=== PATIENT | male | born 1965 | race Caucasian/White ===

== ENCOUNTER → 2021-07-07 09:37 | Outpatient (CLI) | payer OTHER, SELFPAY ==
[2021-07-07 10:42] LABS: COVID19 -Nasal RAPID Negative (Negative)
== END ==
PROVIDERS: PCP Physician Assistant Medical; Visit Provider Specialist
DX: Z20.822 Contact with and (suspected) exposure to COVID-19 (principal)
CPT/HCPCS: 87635; C9803

== ENCOUNTER 2021-07-08 07:57 | Day surgery (SDC) | payer OTHER, SELFPAY ==
[2021-07-08 08:21] VITALS: BP 121/89; PULSE 81; RESP 16; TEMP 36.9; O2SAT 98; BMI 30.4
[2021-07-08] MEDS: LACTATED RINGERS 1,000 ML 100 ML IV (08:34)
--- NOTE | 2021-07-08 10:10 | P.HP_ITS ---
History of Present Illness History of Present Illness Chief complaint: [facility] Narrative: Patient is a gentleman here for a screening colonoscopy. Last exam was 5 years ago. He has a personal history of polyps. No history of cancer in the family. Patient History Surgical History H/O vasectomy History of cholecystectomy Family & Social History Social History: household members spouse Tobacco & Substance use: Smoking Status Never smoker alcohol intake current alcohol intake frequency holiday/special occasion Substance Use Type does not use Meds Home Medications and Allergies Home Medications Medication Instructions Recorded Confirmed Type No Known Home Medications 07/08/21 07/08/21 History Allergies Allergy/AdvReac Type Severity Reaction Status Date / Time Penicillins Allergy Intermediate Hives Verified 07/08/21 08:19 Review of Systems Review of Systems Narrative: No cardiopulmonary GI or symptoms. No seizures or blackouts. Exam Vital Signs (past 8 hours): - 07/08/21 08:21 Temperature 98.4 F Pulse Rate 81 Respiratory Rate 16 Blood Pressure 121/89 Pulse Oximetry 98 Oxygen Delivery Method Room Air Narrative Exam Narrative: Pleasant cooperative patient no apparent distress. Lungs are clear to auscultation. No rales or rhonchi. Heart regular rate and rhythm no murmur gallop. Abdomen is soft nontender without mass. No obvious hernias. Patient is alert and oriented x3. Assessment & Plan Assessment & Plan narrative: The patient for a screening colonoscopy. I have discussed the procedure with them. Risks of bleeding, perforation which would necessitate major operation, failure to find remove all lesions, the potential tattoo were all discussed. All questions were answered. They wished to proceed.
--- NOTE | 2021-07-08 10:12 | PM.PREOP ---
Pre-operative Note COVID-19 COVID-19 status: Negative Result date/Date tested (Pos, Neg/Pending): 07/07/21 Interval Note History & Physical reviewed/Exam performed by Physician: Yes Changes to H&P: No ASA Class (for procedural sedation): I
[2021-07-08] MEDS: fentaNYL 250 MCG/5 ML INJ IV (10:18)
[2021-07-08] MEDS: MIDAZOLAM 5 MG/5 ML VIAL IV (10:18)
--- NOTE | 2021-07-08 10:36 | PM.OP.ENDO ---
Operative Date/Time/Diagnoses Date of procedure: 07/08/21 Time of procedure: 10:36 Pre-op diagnosis: Screening exam. Last exam 5 years ago. Personal history of polyps. Post-op diagnosis: same Procedure & Clinicians Study performed: Colonoscopy Same procedure as scheduled: Yes Indications: Screening Surgeon: Max Butler Procedure Notes SCOAP/Timeout: Performed Procedure in detail: The patient was placed in the left lateral decubitus position and underwent IV sedation directed by the surgeon consisting of fentanyl and Versed. Digital exam was unremarkable. Prostate was was felt to be normal size without mass.. The scope was inserted and advanced through the rectum into the sigmoid, descending, transverse, and ascending colon. No lesions were seen.. The cecum was reached identified by the ileocecal valve and the appendiceal opening. The ileocecal valve was successfully cannulated. The terminal ileum was normal in appearance. The scope was gradually brought out. No Polyps were found. The scope ultimately was retroflexed in the rectum. The appearance was remarkable for hemorrhoidal disease which was mostly right near the anal verge.. The scope was removed and the patient tolerated the procedure well. Prep was excellent. Scope withdrawal time: 7-1/2 minutes Sedation minutes: 19 Findings: internal hemorrhoids Specimen(s): none sent Complications: none Post-procedure Recommendations: Colonscopy in 5 years Follow up: as needed Disposition: PACU
[2021-07-08 10:40] VITALS: BP 125/76; PULSE 69; RESP 15; TEMP 37.5; O2SAT 98
[2021-07-08 10:45] VITALS: BP 114/80; PULSE 70; RESP 17; O2SAT 94
[2021-07-08 10:50] VITALS: BP 107/72; PULSE 70; RESP 19; O2SAT 94
[2021-07-08 10:55] VITALS: BP 110/71; PULSE 72; RESP 18; TEMP 37.2; O2SAT 94
[2021-07-08 11:08] VITALS: BP 118/72; PULSE 78; RESP 18; TEMP 36.7; O2SAT 97
--- NOTE | 2021-07-08 14:19 | SUR.PHASEI ---
Late entry: Pt left when ready, left in stable condition.
== END 2021-07-08 11:30 | disposition home or self-care (01) ==
PROVIDERS: PCP Physician Assistant Medical; Referring Provider Specialist; Visit Provider Specialist
PROC: 0DJD8ZZ Inspection of Lower Intestinal Tract, Via Natural or Artificial Opening Endoscopic (ICD-10-PCS; CPT 45378; principal; 2021-07-08 09:15)
DX: Z12.11 Encounter for screening for malignant neoplasm of colon (principal); Z86.010 Personal history of colon polyps; K64.8 Other hemorrhoids
CPT/HCPCS: 45378; 99152; J2250; J3010

== ENCOUNTER → 2022-10-04 09:59 | Outpatient (CLI) | payer OTHER, SELFPAY ==
[2022-10-04 10:28] LABS: Hematocrit 45.1 % (41-53); Hemoglobin 15.5 g/dL (13.5-17.5); Mean Corpuscular HGB Conc 34.5 % (30-36); Mean Corpuscular Hemoglobin 29.8 PG (26-34); Mean Corpuscular Volume 86.5 fL (80-100); Platelet Count 251 X10^3/uL (150-400); Red Blood Cell Count 5.21 X10^6/uL (4.5-5.9); Red Cell Distribution Width 13.8 % (11.6-14.8); White Blood Cell Count 6.2 X10^3/uL (4.5-11.0)
[2022-10-04 10:56] LABS: Alanine Aminotransferase 40 IU/L (<50); Albumin 4.3 g/dL (3.5-5.0); Albumin Globulin Ratio 1.2 (1.0-2.8); Alkaline Phosphatase 82 U/L (38-126); Aspartate Aminotransferase 27 IU/L (17-59); BUN Creatinine Ratio 18.7 (6-22); Bilirubin Total 1.3 mg/dL (0.2-1.3); Blood Urea Nitrogen 17 mg/dL (9-20); Calcium 9.3 mg/dL (8.4-10.2); Carbon Dioxide 30 mmol/L (22-32); Chloride 99 mmol/L (98-107); Cholesterol 204 mg/dL (140-199); Estimated Glomerular Filt Rate > 60 mL/min (>60); Globulin 3.5 g/dL (1.7-4.1); Glucose 111 mg/dL (70-100); HDL Cholesterol 47 mg/dL (40-60); HEMOLYSIS < 15 (0-50); LDL Cholesterol Calculated 128 mg/dL (<100); Potassium 3.8 mmol/L (3.4-5.1); Sodium 138 mmol/L (137-145); Total Protein 7.8 g/dL (6.3-8.2); Triglycerides 143 mg/dL (35-150)
[2022-10-04 11:25] LABS: Prostate Specific Antigen Scrn 1.05 ng/mL (0.1-4.0)
[2022-10-04 11:30] LABS: Creatinine Urine Random 197.1 mg/dL
[2022-10-04 11:34] LABS: Microalbumi Creatinin Ratio Ur 24.8 ug/mg CR (<30); Microalbumin Urine Random 4.9 mg/dL (0-1.6)
[2022-10-04 13:50] LABS: Hemoglobin A1C% w Est Avg Glu 5.8 % (4.0-6.0)
== END ==
PROVIDERS: PCP Family Medicine; Referring Provider Family Medicine; Visit Provider Family Medicine
DX: I10 Essential (primary) hypertension (principal); I27.20 Pulmonary hypertension, unspecified; Z12.5 Encounter for screening for malignant neoplasm of prostate; Z13.220 Encounter for screening for lipoid disorders; R73.01 Impaired fasting glucose
CPT/HCPCS: 36415; 80053; 80061; 82043; 82570; 83036; 85027; G0103

== ENCOUNTER → 2023-03-01 11:16 | Outpatient (CLI) | payer OTHER, SELFPAY | PROVIDERS: PCP Family Medicine; Visit Provider Nurse Practitioner Family | DX: J02.9 Acute pharyngitis, unspecified (principal) | CPT/HCPCS: 87070 ==

== ENCOUNTER → 2023-07-27 15:59 | Outpatient (CLI) | payer OTHER, SELFPAY ==
[2023-07-27 16:27] LABS: Add Manual Diff / Slide Review NO; Basophils Absolute Auto 0 /uL (0-100); Basophils Percent Auto 0.7 % (0-2); Eosinophils Absolute Auto 200 /uL (0-450); Eosinophils Percent Auto 3.2 % (2-4); Hematocrit 44.6 % (41-53); Hemoglobin 15.3 g/dL (13.5-17.5); Lymphocytes Absolute Auto 1600 /uL (1100-4500); Lymphocytes Percent Auto 22.7 % (25-40); Mean Corpuscular HGB Conc 34.3 % (30-36); Mean Corpuscular Hemoglobin 30.1 PG (26-34); Mean Corpuscular Volume 87.8 fL (80-100); Monocytes Absolute Auto 600 /uL (0-900); Monocytes Percent Auto 8.7 % (3-14); Neutrophils Absolute Auto 4400 /uL (1500-7000); Neutrophils Percent Auto 64.7 % (50-75); Platelet Count 267 X10^3/uL (150-400); Red Blood Cell Count 5.09 X10^6/uL (4.5-5.9); Red Cell Distribution Width 13.9 % (11.6-14.8); White Blood Cell Count 6.8 X10^3/uL (4.5-11.0)
[2023-07-27 16:32] LABS: Ammonia (NH3) < 9 umol/L (9-30)
[2023-07-27 16:37] LABS: Alanine Aminotransferase 45 IU/L (<50); Albumin 4.6 g/dL (3.5-5.0); Albumin Globulin Ratio 1.2 (1.0-2.8); Alkaline Phosphatase 82 U/L (38-126); Aspartate Aminotransferase 29 IU/L (17-59); BUN Creatinine Ratio 16.1 (6-22); Bilirubin Direct 0.2 mg/dL (0.0-0.4); Bilirubin Total 1.3 mg/dL (0.2-1.3); Blood Urea Nitrogen 15 mg/dL (9-20); Calcium 9.7 mg/dL (8.4-10.2); Carbon Dioxide 29 mmol/L (22-32); Chloride 102 mmol/L (98-107); Estimated Glomerular Filt Rate > 60 mL/min (>60); Gamma Glutamyl Transpeptidase 33 U/L (15-73); Globulin 3.8 g/dL (1.7-4.1); Glucose 106 mg/dL (80-110); HEMOLYSIS < 15 (0-50); Potassium 4.1 mmol/L (3.4-5.1); Sodium 141 mmol/L (137-145); Total Protein 8.4 g/dL (6.3-8.2)
[2023-07-27 17:09] LABS: Thyroid Stimulating Hormone 1.16 uIU/mL (0.47-4.68)
[2023-07-27 17:59] LABS: Ferritin 246 ng/mL (18-464)
== END ==
PROVIDERS: PCP Family Medicine; Referring Provider Family Medicine; Visit Provider Family Medicine
DX: E78.5 Hyperlipidemia, unspecified (principal); R73.01 Impaired fasting glucose; I10 Essential (primary) hypertension; R10.9 Unspecified abdominal pain; K76.6 Portal hypertension; K74.60 Unspecified cirrhosis of liver; K76.9 Liver disease, unspecified; D64.9 Anemia, unspecified
CPT/HCPCS: 36415; 80053; 82140; 82248; 82728; 82977; 84443; 85025

== ENCOUNTER → 2023-08-15 08:37 | Outpatient (CLI) | payer OTHER, SELFPAY ==
--- NOTE | 2023-08-15 08:37 | DI.US.S_ITS ---
PROCEDURE: US ABDOMEN LIMITED INDICATIONS: HISTORY HEP C, PORTAL HTN TECHNIQUE: Real-time focused scanning was performed of the abdomen, with image documentation. COMPARISON: [facility], US, ABDOMEN COMPLETE, 02/17/2013, 16:13. FINDINGS: Visualized pancreas is unremarkable sonographically. Prior cholecystectomy. The extrahepatic bile duct measures 9 mm. No intrahepatic biliary ductal dilation identified. Liver is echogenic. No suspicious focal liver lesion identified sonographically. IMPRESSION: 1. The liver is echogenic, a nonspecific finding commonly seen in the setting of steatosis. 2. No suspicious focal liver lesion identified sonographically, however the abnormal background echotexture of the liver limits sensitivity for detection of focal lesions. 3. Prominent caliber of the extrahepatic bile duct likely related to post-cholecystectomy state, however correlation with the patient's symptoms and laboratory markers for biliary obstruction may be helpful. Dictated by: Garrick Sainz M.D. on 08/15/2023 at 9:41 Approved by: Garrick Sainz M.D. on 08/15/2023 at 10:00
== END ==
PROVIDERS: PCP Family Medicine; Referring Provider Family Medicine; Visit Provider Family Medicine
DX: R10.9 Unspecified abdominal pain (principal); Z86.19 Personal history of other infectious and parasitic diseases; K76.6 Portal hypertension
CPT/HCPCS: 76705

== ENCOUNTER → 2023-09-13 08:06 | Outpatient (CLI) | payer OTHER, SELFPAY ==
--- NOTE | 2023-09-13 | DI.ECHO.S_ITS ---
[facility] +---------+ : : [address] : : : : [id number] : : : : Phone: [phone] Echocardiogram Report + + :Name: DIA ONEIL V Study Date: 09/13/2023 Height: 70 in : :[facility] ReadingLocation: Weight: 215 lb : : Gender: Male BSA: 2.2 m2 : :: 1965 Age: 58 yrs BP: 136/93 mmHg: :Reason For Study: PULMONARY HYPERTENSION : :Ordering Physician: Wellington MONTGOMERYformed By: Bhavna Amaya : :Referring: JOSE MARTIN MONTGOMERY : + + Interpretation Summary 1) Normal left ventricular thickness, size, wall motion, and systolic function (EF 60-65%). 2) Normal right ventricular size and function. 3) No significant valvular abnormalities. 4) No prior Echo available for comparison. Procedure: A two-dimensional transthoracic echocardiogram with color flow and Doppler was performed. The study quality was technically adequate. There is no prior echocardiogram noted for this patient. The patient was in sinus rhythm with heart rates between 58-65 bpm during the exam. Left Ventricle: The left ventricle is normal in size and wall thickness. The ejection fraction is estimated to be 60-65%. Left ventricular systolic function appears normal without focal wall motion abnormalities. Diastolic parameters suggest probable normal left ventricular diastolic function and normal filling pressures. Right Ventricle: The right ventricle is normal in size and function. Atria: The left atrial size is normal. Right atrial size is normal. There is no Doppler evidence for an interatrial shunt. Mitral Valve: The mitral valve is normal in structure and function. There is no mitral regurgitation noted. Aortic Valve: The aortic valve is trileaflet. The aortic valve opens well. There is no aortic valve stenosis. There is trace aortic regurgitation. Tricuspid Valve: The tricuspid valve is normal in structure and function. There is trace tricuspid regurgitation. Pulmonary artery pressures cannot be estimated because of the lack of a measurable TR jet velocity. Pulmonic Valve: The pulmonic valve leaflets are thin and pliable; valve motion is normal. There is no pulmonic valvular regurgitation. Great Vessels: The aortic root is normal size. The dimensions of the ascending aorta are normal. The IVC is of normal diameter and collapses greater than 50% with a sniff. This suggests a low right atrial pressure of 3 mm Hg. Pericardium/ Pleura There is no pericardial effusion. There is no pleural effusion. MMode/2D Measurements & Calculations LVIDd: 5.0 cm LVOT diam: 2.3 cm LVIDs: 3.0 cm Ao root diam: 3.5 cm FS: 38.6 % asc Aorta Diam: 3.0 cm IVSd: 0.94 cm Ao Arch Diam (Prox Trans): 2.9 cm LVPWd: 0.92 cm LV farmer. diameter/BSA (cm/m^2): 2.3 LV sys. diameter/BSA (cm/m^2): 1.4 LA A2 area: 14.1 cm2 RA long axis: 4.5 cm LA A4 area: 13.5 cm2 RA area: 10.9 cm2 LA length (vol): 4.8 cm RA vol: 22.6 ml LA vol: 33.5 ml RA : 10.5 ml/m2 LA vol index: 15.6 ml/m2 IVC diam: 1.8 cm RVD1 (basal): 3.6 cm RVD2 (mid): 3.9 cm TAPSE: 2.0 cm Doppler Measurements & Calculations Ao V2 max: 125.3 cm/sec LVOT Max Jose: 92.9 cm/sec Ao V2 mean: 88.0 cm/sec LV V1 max P.5 mmHg Ao max P.3 mmHg LV V1 VTI: 19.8 cm Ao mean P.5 mmHg MESHA(I,D): 3.0 cm2 Ao V2 VTI: 27.8 cm MESHA(V,D): 3.1 cm2 sev ratio: 0.71 MESHA indexed to BSA (cm^2/m^2): 1.4 MV E max jose: 82.4 cm/sec PA V2 max: 116.8 cm/sec MV A max jose: 47.9 cm/sec PA V2 mean: 79.8 cm/sec MV E/A: 1.7 PA mean P.9 mmHg Med Peak E' Jose: 5.7 cm/sec PA pr(Accel): 15.6 mmHg E/E' med: 14.4 Lat Peak E' Jose: 11.2 cm/sec E/E' lat: 7.3 E/e' average: 10.9 MV dec time: 0.18 sec SV(LVOT): 82.4 ml Reading Physician:11:03 AM
== END ==
PROVIDERS: PCP Family Medicine; Referring Provider Family Medicine; Visit Provider Family Medicine
DX: I27.20 Pulmonary hypertension, unspecified (principal)
CPT/HCPCS: 93306

== ENCOUNTER → 2024-02-18 09:50 | Outpatient (CLI) | payer OTHER, SELFPAY ==
--- NOTE | 2024-02-18 09:52 | DI.US.S_ITS ---
PROCEDURE: US ABDOMEN LIMITED INDICATIONS: 6 MONTH FOLLOW UP RUQ TECHNIQUE: Real-time focused scanning was performed of the abdomen, with image documentation. COMPARISON: , US, ABDOMEN COMPLETE, 02/17/2013, 16:13. , US, US ABDOMEN LIMITED, 08/15/2023, 9:01. FINDINGS: This study is limited by overlying bowel gas. The liver demonstrates normal size. The liver demonstrates generalized moderately increased echogenicity. This decreases ultrasound sensitivity for detection of hepatic masses. The main portal vein demonstrates normal size and demonstrates normal appearing, hepatopetal flow. Status post cholecystectomy. There is no biliary dilatation, the common bile duct measures 6 mm. The pancreas is not seen, secondary to overlying bowel gas. IMPRESSION: Increased liver echogenicity seen, which is consistent with fatty infiltration or cirrhosis. Status post cholecystectomy, without biliary dilatation. Dictated by: Juancarlos Galvez M.D. on 02/18/2024 at 11:51 Approved by: Juancarlos Galvez M.D. on 02/18/2024 at 11:52
== END ==
LOC: US 09:51
PROVIDERS: PCP Family Medicine; Referring Provider Family Medicine; Visit Provider Family Medicine
DX: K76.6 Portal hypertension (principal); K74.60 Unspecified cirrhosis of liver; K76.9 Liver disease, unspecified; E78.5 Hyperlipidemia, unspecified; Z90.49 Acquired absence of other specified parts of digestive tract
CPT/HCPCS: 76705

== ENCOUNTER → 2024-09-08 08:14 | Outpatient (CLI) | payer OTHER, SELFPAY ==
[2024-09-08 10:11] LABS: Hemoglobin A1C% w Est Avg Glu 5.9 % (4.0-6.0)
[2024-09-08 10:18] LABS: Erythrocyte Sedimentation Rate 7 MM/HR (0-15)
[2024-09-08 10:38] LABS: Creatinine Urine Random 256.26 mg/dL
[2024-09-08 10:39] LABS: Alanine Aminotransferase 42 IU/L (<50); Albumin 4.2 g/dL (3.5-5.0); Albumin Globulin Ratio 1.4 (1.0-2.8); Alkaline Phosphatase 83 U/L (38-126); Aspartate Aminotransferase 29 IU/L (17-59); BUN Creatinine Ratio 14.3 (6-22); Bilirubin Total 1.4 mg/dL (0.2-1.3); Blood Urea Nitrogen 14 mg/dL (9-20); Calcium 9.7 mg/dL (8.4-10.2); Carbon Dioxide 28 mmol/L (22-32); Chloride 103 mmol/L (98-107); Cholesterol 201 mg/dL (140-199); Estimated Glomerular Filt Rate > 60 mL/min (>60); Globulin 3.1 g/dL (1.7-4.1); Glucose 138 mg/dL (80-110); HDL Cholesterol 49 mg/dL (40-60); HEMOLYSIS < 15 (0-50); LDL Cholesterol Calculated 123 mg/dL (<100); Potassium 4.7 mmol/L (3.4-5.1); Sodium 139 mmol/L (137-145); Total Protein 7.3 g/dL (6.3-8.2); Triglycerides 143 mg/dL (35-150)
[2024-09-08 10:42] LABS: Microalbumin Urine Random 4.8 mg/dL (0-1.6)
[2024-09-08 10:43] LABS: High Sensitivity CRP - Cardiac 5.1 mg/L (1.0-3.0)
[2024-09-08 11:10] LABS: Prostate Specific Antigen Scrn 1.04 ng/mL (0.1-4.0)
== END ==
PROVIDERS: PCP Family Medicine; Referring Provider Family Medicine; Visit Provider Family Medicine
DX: K76.6 Portal hypertension (principal); K74.60 Unspecified cirrhosis of liver; K76.9 Liver disease, unspecified; E78.5 Hyperlipidemia, unspecified; I10 Essential (primary) hypertension; R73.01 Impaired fasting glucose; R79.89 Other specified abnormal findings of blood chemistry; R68.82 Decreased libido; R53.83 Other fatigue; Z12.5 Encounter for screening for malignant neoplasm of prostate; E66.9 Obesity, unspecified; Z68.32 Body mass index [BMI] 32.0-32.9, adult; G47.00 Insomnia, unspecified; I27.20 Pulmonary hypertension, unspecified; R73.9 Hyperglycemia, unspecified
CPT/HCPCS: 36415; 80053; 80061; 82043; 82570; 83036; 84402; 84403; 85651; 86140; G0103

== ENCOUNTER 2025-03-09 12:33 | Emergency (ER) | payer OTHER, SELFPAY ==
[2025-03-09 12:41] VITALS: BP 134/89; PULSE 67; RESP 18; TEMP 35.9; O2SAT 94; BMI 30.8
--- NOTE | 2025-03-09 12:45 | EKG_ITS ---
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
--- NOTE | 2025-03-09 13:12 | ED.ABDPAIN ---
HPI - Abdominal Pain General Chief Complaint: Abdominal Pain Stated Complaint: Stomach pain Time Seen by Provider: 03/09/25 12:44 Source: patient Mode of arrival: Ambulatory History of Present Illness HPI narrative: Patient is a 60-year-old male history of cholecystectomy presenting today with about 1 week of abdominal pain. Reports that he has been having some cramping off and on for about a week. Occasional diarrhea but nonbloody. No nausea or vomiting. No change in eating habits. Reports he is passing gas. Not pain now. Says that his stool change to more of a soft rather than liquid today. No fever or chills no other symptoms. Related Data Home Medications Medication Instructions Recorded Confirmed cholecalciferol (vitamin D3) PO 02/22/24 02/22/24 magnesium PO 02/22/24 02/22/24 turmeric PO 02/22/24 02/22/24 Berberine & cinnamon PO 09/12/24 acetaminophen-pamabrom 500 mg-25 1 tab PO Q6H PRN 09/12/24 09/12/24 mg tablet calcium carb-vitamin D3-vit K2 PO 09/12/24 09/12/24 riboflavin (vitamin B2) PO 09/12/24 09/12/24 Previous Rx's Medication Instructions Recorded sildenafil 25 mg tablet (Viagra) 12.5 mg (1/2 x 25 mg) PO DAILY PRN 10/02/24 sexual activity #30 tabs Allergies Allergy/AdvReac Type Severity Reaction Status Date / Time Penicillins Allergy Intermediate Hives Verified 09/12/24 08:17 Patient History Medical History Hx of pulmonary hypertension (~2010) Allergies (~1981) Headache Shoulder pain (~1995) Fractures Chronic back pain (~1995) History of blood transfusion (~2010) Tinnitus (~1999) Hepatitis C (~2011) Colon polyps (~2019) Hypertension (~2010) Surgical History Anesthesia H/O vasectomy History of cholecystectomy (~2010) Family History Father Diabetes mellitus Hypertension Hyperlipidemia Mother Diabetes mellitus Hypertension Hyperlipidemia Social History household members: spouse Smoking Status: Never smoker alcohol intake: current (only during major events) substance use type: does not use Smoking Status: Never smoker alcohol intake frequency: holidays/special occasions only Exam Initial Vital Signs Initial Vital Signs: Vital Signs Temperature 96.7 F L 03/09/25 12:41 Pulse Rate 67 03/09/25 12:41 Respiratory Rate 18 03/09/25 12:41 Blood Pressure 134/89 03/09/25 12:41 Pulse Oximetry 94 03/09/25 12:41 Oxygen Delivery Method Room Air 03/09/25 12:41 GENERAL: Alert pleasant well-appearing 60-year-old male and in no acute distress. HEENT: Head atraumatic,EOMI, pupils reactive, face symmetric, moist mucous membranes CARDIOVASCULAR: Regular rate and rhythm without murmurs, rubs or gallops. RESPIRATORY: Breath sounds equal bilaterally, no wheezes rales or rhonchi. ABDOMEN: Soft, nontender. Normoactive bowel sounds all 4 quadrants. No guarding or rebound. No significant distention positive bowel sounds all 4 quadrants EXTREMITIES: Normal range of motion, no clubbing or edema. Neurovascularly intact NEUROLOGICAL: Alert and oriented x4.Normal gait and speech. Cranial nerves II through XII grossly intact. SKIN: Warm, dry, no laceration, no petechiae, no rashes or lesions. Course Orders Ordered: ED Orders 03/09/25 12:43 EKG-12 Lead Stat 03/09/25 12:55 Complete Blood Count AUTO DIFF Stat Comprehensive Metabolic Panel Stat Lipase Stat 03/09/25 14:11 CT abdomen pelvis w con Stat Discontinued Medications Ondansetron HCl (Ondansetron 4 Mg/2 Ml Inj) 4 mg IV NOW PRN PRN Reason: Nausea And Vomiting Ondansetron HCl (Ondansetron 4 Mg Odt) 4 mg PO NOW PRN PRN Reason: Nausea And Vomiting Vital Signs Vital signs: Vital Signs - 8 hr 03/09/25 12:41 03/09/25 15:39 Temperature 96.7 F L Pulse Rate 67 97 H Respiratory Rate 18 18 Blood Pressure 134/89 120/75 Pulse Oximetry 94 99 Oxygen Delivery Method Room Air Room Air MDM - Abdominal Pain Lab Data 03/09/25 12:55 03/09/25 12:55 Labs: Lab Results 04/28/25 Range/Units 12:55 WBC 7.7 (4.5-11.0) X10^3/uL RBC 5.37 (4.5-5.9) X10^6/uL Hgb 16.3 (13.5-17.5) g/dL Hct 47.2 (41-53) % MCV 87.9 (80-100) fL MCH 30.3 (26-34) PG MCHC 34.5 (30-36) % RDW 13.8 (11.6-14.8) % Plt Count 232 (150-400) X10^3/uL Neut % (Auto) 62.4 (50-75) % Lymph % (Auto) 19.4 L (25-40) % Castro % (Auto) 7.1 (3-14) % Eos % (Auto) 10.6 H (2-4) % Baso % (Auto) 0.5 (0-2) % Neut # (Auto) 4800 (5606-5764) /uL Lymph # (Auto) 1500 (4733-1654) /uL Castro # (Auto) 500 (0-900) /uL Eos # (Auto) 800 H (0-450) /uL Baso # (Auto) 0 (0-100) /uL Sodium 139 (137-145) mmol/L Potassium 3.9 (3.4-5.1) mmol/L Chloride 101 (98-107) mmol/L Carbon Dioxide 28 (22-32) mmol/L BUN 12 (9-20) mg/dL Creatinine 1.04 (0.66-1.25) mg/dL Estimated GFR > 60 (>60) mL/min BUN/Creatinine Ratio 11.5 (6-22) Glucose 114 H (70-99) mg/dL Calcium 9.2 (8.4-10.2) mg/dL Total Bilirubin 1.7 H (0.2-1.3) mg/dL AST 37 (17-59) IU/L ALT 45 (<50) IU/L Alkaline Phosphatase 94 (38-126) U/L Total Protein 7.7 (6.3-8.2) g/dL Albumin 4.5 (3.5-5.0) g/dL Globulin 3.2 (1.7-4.1) g/dL Albumin/Globulin Ratio 1.4 (1.0-2.8) Lipase 80 (23-300) U/L Point of care testing: Urine Dip Bedside Urine Glucose Negative Bedside Urine Bilirubin - Negative Bedside Urine Ketone - Negative Urine Specific [place] 1.010 Bedside Urine Occult Blood - Negative Bedside Urine pH 7.0 Bedside Urine Protein - Negative Bedside Urine Urobilinogen - Negative Bedside Urine Nitrite - Negative Bedside Urine Leukocytes - Negative Esterase Imaging Data CT scan - abdomen/pelvis: Radiologist's Impression: PROCEDURE: CT ABDOMEN PELVIS W CON INDICATIONS: ab pain all across TECHNIQUE: After the administration of intravenous contrast, axial sections acquired from the lung bases to the pubic symphysis. Coronal and sagittal reformats were performed. For radiation dose reduction, the following was used: automated exposure control, adjustment of mA and/or kV according to patient size. COMPARISON: None. FINDINGS: Image quality: Diagnostic. Lower Chest: No significant findings. ABDOMEN: Liver: No solid mass. Geographic hypoattenuating regions in the liver are likely related to fatty infiltration. Gallbladder: Status post cholecystectomy. Biliary ducts: No biliary dilation. Pancreas: No ductal dilation. Spleen: Size is within normal limits. Adrenal Glands: No adrenal nodules. Kidneys and Ureters: No hydronephrosis. No solid mass. No complex renal cystic lesion which requires follow up. Stomach and Bowel: Normal appendix. Small and large bowel loops are unremarkable. Peritoneum: No abnormal intraperitoneal fluid. No free air. Ventral Wall: Small fat containing ventral hernia at the upper abdomen. Abdominal Nodes: No retroperitoneal or mesenteric adenopathy by size criteria. Vessels: Aorta and inferior vena cava are normal in size. Multiple collateral vessels in the hepatic hilum suspicious for cavernous transformation of the portal vein. No portal vein thrombus is seen. PELVIS: Pelvic Organs: Unremarkable. Bladder: No bladder wall thickening, accounting for underdistention. Pelvic Nodes: No enlarged lymph nodes. Miscellaneous: Small fat containing left inguinal hernia. Bones: No aggressive osseous abnormality. IMPRESSION: 1. No acute abnormality identified in the abdomen or pelvis. 2. Hepatic steatosis. Approved by: Garrick Pino M.D. on 03/09/2025 at 15:03 ECG Data Attestation: I personally reviewed and interpreted this ECG as follows: Prior ECG tracings: not available for review Interpretation: Normal sinus rhythm rate 59 LA interval 148 QRS 76 QTC [address] changes no T-wave inversions MDM Narrative Medical decision making narrative: Patient is 60-year-old male presenting today with 1 week of abdominal pain and cramping. Having off and on diarrhea no nausea no vomiting. Continues to eat abdomen is soft nontender no significant distention has bowel sounds in all 4 quadrant Blood work has been reviewed no leukocytosis no anemia CMP shows no electrolyte abnormality no ALYSON Bilirubin slightly elevated 1.7 was previously 1.4, liver enzymes and lipase all within normal limits CT reviewed no acute abnormality EKGs reviewed no ischemia Not requiring anything for pain and nausea now. At this time there is no cause for patient's abdominal pain. He actually does not have an acute abdomen at this time soft nontender blood work is reassuring CT does not show any evidence of diverticulitis bowel obstruction or other cause. With some loose stool and diarrhea it is possible he had a mild gastritis but he does not show any evidence of dehydration. At this time supportive care only return as needed. Discharge Plan Departure Patient Disposition: Home Clinical Impression: Abdominal pain Instructions: DI for Abdominal Pain-Adult Activity Restrictions/Additional Instructions: *You have been diagnosed with abdominal pain *What to do: At this time blood work and CT do not show any abnormality. Possible viral illness *Continue to take medications as directed *Follow up with your primary care provider in 2-3 days or call [phone] *Return to ER if you should have increased pain nausea vomiting fever or any new, worsening or concerning symptoms Prescriptions: No Action sildenafil [Viagra] 25 mg tablet 12.5 mg PO DAILY PRN (Reason: sexual activity) Qty: 30 11RF Rx Instructions: administer 30 minutes to 4 hours before activity turmeric PO cholecalciferol (vitamin D3) PO magnesium PO riboflavin (vitamin B2) PO calcium carb-vitamin D3-vit K2 PO acetaminophen-pamabrom 500-25 mg tablet 1 tab PO Q6H PRN Berberine & cinnamon PO Referrals: Adry Elliott DO [Primary Care Provider] - Stand Alone Forms: Patient Portal/API/Survey
[2025-03-09 13:17] LABS: Add Manual Diff / Slide Review NO; Basophils Absolute Auto 0 /uL (0-100); Basophils Percent Auto 0.5 % (0-2); Eosinophils Absolute Auto 800 /uL (0-450); Eosinophils Percent Auto 10.6 % (2-4); Hematocrit 47.2 % (41-53); Hemoglobin 16.3 g/dL (13.5-17.5); Lymphocytes Absolute Auto 1500 /uL (1100-4500); Lymphocytes Percent Auto 19.4 % (25-40); Mean Corpuscular HGB Conc 34.5 % (30-36); Mean Corpuscular Hemoglobin 30.3 PG (26-34); Mean Corpuscular Volume 87.9 fL (80-100); Monocytes Absolute Auto 500 /uL (0-900); Monocytes Percent Auto 7.1 % (3-14); Neutrophils Absolute Auto 4800 /uL (1500-7000); Neutrophils Percent Auto 62.4 % (50-75); Platelet Count 232 X10^3/uL (150-400); Red Blood Cell Count 5.37 X10^6/uL (4.5-5.9); Red Cell Distribution Width 13.8 % (11.6-14.8); White Blood Cell Count 7.7 X10^3/uL (4.5-11.0)
[2025-03-09 13:25] LABS: Alanine Aminotransferase 45 IU/L (<50); Albumin 4.5 g/dL (3.5-5.0); Albumin Globulin Ratio 1.4 (1.0-2.8); Alkaline Phosphatase 94 U/L (38-126); Aspartate Aminotransferase 37 IU/L (17-59); BUN Creatinine Ratio 11.5 (6-22); Bilirubin Total 1.7 mg/dL (0.2-1.3); Blood Urea Nitrogen 12 mg/dL (9-20); Calcium 9.2 mg/dL (8.4-10.2); Carbon Dioxide 28 mmol/L (22-32); Chloride 101 mmol/L (98-107); Estimated Glomerular Filt Rate > 60 mL/min (>60); Globulin 3.2 g/dL (1.7-4.1); Glucose 114 mg/dL (70-99); HEMOLYSIS < 15 (0-50); Lipase 80 U/L (23-300); Potassium 3.9 mmol/L (3.4-5.1); Sodium 139 mmol/L (137-145); Total Protein 7.7 g/dL (6.3-8.2)
--- NOTE | 2025-03-09 14:11 | DI.CT.S_ITS ---
PROCEDURE: CT ABDOMEN PELVIS W CON INDICATIONS: ab pain all across TECHNIQUE: After the administration of intravenous contrast, axial sections acquired from the lung bases to the pubic symphysis. Coronal and sagittal reformats were performed. For radiation dose reduction, the following was used: automated exposure control, adjustment of mA and/or kV according to patient size. COMPARISON: None. FINDINGS: Image quality: Diagnostic. Lower Chest: No significant findings. ABDOMEN: Liver: No solid mass. Geographic hypoattenuating regions in the liver are likely related to fatty infiltration. Gallbladder: Status post cholecystectomy. Biliary ducts: No biliary dilation. Pancreas: No ductal dilation. Spleen: Size is within normal limits. Adrenal Glands: No adrenal nodules. Kidneys and Ureters: No hydronephrosis. No solid mass. No complex renal cystic lesion which requires follow up. Stomach and Bowel: Normal appendix. Small and large bowel loops are unremarkable. Peritoneum: No abnormal intraperitoneal fluid. No free air. Ventral Wall: Small fat containing ventral hernia at the upper abdomen. Abdominal Nodes: No retroperitoneal or mesenteric adenopathy by size criteria. Vessels: Aorta and inferior vena cava are normal in size. Multiple collateral vessels in the hepatic hilum suspicious for cavernous transformation of the portal vein. No portal vein thrombus is seen. PELVIS: Pelvic Organs: Unremarkable. Bladder: No bladder wall thickening, accounting for underdistention. Pelvic Nodes: No enlarged lymph nodes. Miscellaneous: Small fat containing left inguinal hernia. Bones: No aggressive osseous abnormality. IMPRESSION: 1. No acute abnormality identified in the abdomen or pelvis. 2. Hepatic steatosis. Approved by: Garrick Pino M.D. on 03/09/2025 at 15:03
[2025-03-09 15:39] VITALS: BP 120/75; PULSE 97; RESP 18; O2SAT 99
== END 2025-03-09 15:39 | disposition home or self-care (01) ==
PROVIDERS: Emergency Provider Emergency Medicine; PCP Family Medicine
DX: R10.9 Unspecified abdominal pain (principal)
CPT/HCPCS: 36415; 74177; 80053; 81003; 83690; 85025; 93005; 99283; 99284; Q9967

== ENCOUNTER → 2025-03-12 13:53 | Outpatient (CLI) | payer OTHER, SELFPAY | PROVIDERS: PCP Family Medicine; Referring Provider Physician Assistant; Visit Provider Physician Assistant | DX: R19.7 Diarrhea, unspecified (principal) | CPT/HCPCS: 83013 ==

== ENCOUNTER → 2025-03-14 11:21 | Outpatient (CLI) | payer OTHER, SELFPAY | LOC: LAB 11:23 | PROVIDERS: PCP Family Medicine; Referring Provider Physician Assistant; Visit Provider Physician Assistant | DX: R19.7 Diarrhea, unspecified (principal) | CPT/HCPCS: 82274; 87177 ==

== ENCOUNTER 2025-04-13 13:07 | Day surgery (SDC) | payer OTHER, SELFPAY ==
--- NOTE | 2025-04-13 13:48 | PM.HP.IH.1 ---
History of Present Illness History of Present Illness Date Patient Seen: 04/13/25 Chief complaint: SDC Narrative: History of polyps but with GI upset and bleeding over the last period of time. Now resolved. Due for screening colonoscopy. [facility] Medical History Hx of pulmonary hypertension (~2010) Allergies (~1981) Headache Shoulder pain (~1995) Fractures Chronic back pain (~1995) History of blood transfusion (~2010) Tinnitus (~1999) Hepatitis C (~2011) Colon polyps (~2019) Hypertension (~2010) Surgical History Anesthesia H/O vasectomy History of cholecystectomy (~2010) Family History Father Diabetes mellitus Hypertension Hyperlipidemia Mother Diabetes mellitus Hypertension Hyperlipidemia Social History household members: spouse alcohol intake: current (only during major events) substance use type: does not use Meds Home Medications and Allergies Home Medications Medication Instructions Recorded Confirmed Type cholecalciferol (vitamin D3) PO 02/22/24 03/12/25 History magnesium PO 02/22/24 03/12/25 History turmeric PO 02/22/24 03/12/25 History Berberine & cinnamon PO 09/12/24 03/12/25 History riboflavin (vitamin B2) PO 09/12/24 03/12/25 History sildenafil 25 mg tablet (Viagra) 12.5 mg (1/2 x 25 mg) PO DAILY PRN 10/02/24 03/12/25 Rx sexual activity #30 tabs sodium,potassium,mag sulfates 17.5 See Rx Instructions PO .COMPLEX 03/19/25 Rx gram-3.13 gram-1.6 gram oral soln #354 mL (Suprep Bowel Prep Kit) Allergies Allergy/AdvReac Type Severity Reaction Status Date / Time Penicillins Allergy Intermediate Hives Verified 03/12/25 13:14 Exam Narrative Exam Narrative: Oropharynx free of lesion Assessment & Plan Assessment & Plan narrative: History of GI upset with bleeding now resolved follow-up to rule out neoplasia. In addition history of polyps in the distant past. Risks, benefits, alternatives have been explained. Time-Based Coding :: [TOTAL MINUTES] spent with patient and on the chart (including review of chart, obtaining history, exam, reviewing outside data, placing orders, documenting exam and treatment plan, and counseling patient) on [DATE]. [employer] Special Build Document charge(s): No
--- NOTE | 2025-04-13 13:49 | PM.OP.COLON ---
Operative Date/Time/Diagnoses Date of procedure: 04/13/25 Time of procedure: 14:09 Pre-op diagnosis: See indications and findings Post-op diagnosis: same Procedure & Clinicians Study performed: Colonoscopy Same procedure as scheduled: Yes Indications: History of bleeding and history of polyps Procedure Notes Procedure in detail: After informed consent was obtained the patient was placed in left lateral decubitus position. The video colonoscope was introduced the rectum slowly advanced cecum. On slow withdrawal mucosa was carefully examined. Preparation was good. Scope was removed. The patient tolerated procedure well. Blood loss none complications none Findings 1. Normal colonoscopy to cecum Patients have follow-up colonoscopy in 3-5 years
[2025-04-13 14:07] VITALS: BP 139/85; PULSE 62; RESP 12; TEMP 35.9; O2SAT 98
[2025-04-13] MEDS: LACTATED RINGERS 1,000 ML 42 ML IV (14:07)
[2025-04-13 14:38] VITALS: BP 109/67; PULSE 59; RESP 16; TEMP 36.2; O2SAT 100
[2025-04-13 14:43] VITALS: BP 110/70; PULSE 53; RESP 16; TEMP 36.2; O2SAT 98
--- NOTE | 2025-04-13 14:46 | PM.OP.COLON ---
Operative Date/Time/Diagnoses Date of procedure: 04/13/25 Time of procedure: 14:48 Pre-op diagnosis: See indication and findings Post-op diagnosis: same Procedure & Clinicians Same procedure as scheduled: Yes Indications: History of GI upset with bleeding now resolved and personal history of colon polyps Surgeon: Tawanna Mae Procedure Notes Procedure in detail: After informed consent was obtained the patient was placed in left lateral decubitus position. The video colonoscope was introduced the rectum slowly advanced cecum. On slow withdrawal mucosa was carefully examined. The scope was removed. The patient tolerated procedure well. Blood loss none Complications none Sedation mac Findings 1. Normal colonoscopy to cecum I see no reason for his bleeding that occurred but whatever this seems to have resolved completely. There were no polyps present and therefore he should have follow-up colonoscopy in 5 years.
[2025-04-13 14:47] VITALS: BP 120/70; PULSE 68; RESP 16; O2SAT 98
[2025-04-13 14:53] VITALS: BP 110/79; PULSE 55; RESP 16; O2SAT 98
[2025-04-13 15:07] VITALS: BP 109/77; PULSE 66; RESP 16; TEMP 36.2; O2SAT 98
== END 2025-04-13 15:07 | disposition home or self-care (01) ==
PROVIDERS: PCP Family Medicine; Referring Provider Internal Medicine Gastroenterology; Visit Provider Internal Medicine Gastroenterology
PROC: 0DJD8ZZ Inspection of Lower Intestinal Tract, Via Natural or Artificial Opening Endoscopic (ICD-10-PCS; CPT 45378; principal; 2025-04-13 14:30)
DX: Z12.11 Encounter for screening for malignant neoplasm of colon (principal); Z86.0100 Personal history of colon polyps, unspecified; Z87.19 Personal history of other diseases of the digestive system
CPT/HCPCS: 45378; J2704